=== PATIENT | female | born 1990 | race Caucasian/White ===

== ENCOUNTER 2016-07-07 22:29 | Emergency (ER) | payer BC ==
[~2016-07-07] VITALS: Wt 48.0 kg
[2016-07-07] MEDS ORDERED: DIPHENHYDRAMINE 50 MG INJ IV ONE (23:30)
[2016-07-07] MEDS ORDERED: METHYLPREDNISOLONE 125 MG INJ IV ONE (23:30)
[2016-07-07] MEDS ORDERED: FAMOTIDINE 20 MG INJ IV ONE (23:30)
[2016-07-08] MEDS ORDERED: PRED20TA PO (00:25)
--- NOTE | 2016-07-08 00:25 | ERD ---
ER Documentation Chief Complaint Date/Time DATE: 07/07/16 Chief Complaint Allergic reaction, Hives HPI The patient is a 26-year-old female who presents to the Emergency Department with complaint of hives and allergic reaction. She reports that at 7:30 pm tonight, she ate a new soup. Approximately 15-20 minutes later, she developed minimal swelling to her upper lip (which has since resolved) and urticaria. The urticaria were initially localized to her bilateral arms, but are now present to both arms, legs, her face, anterior chest wall and abdomen. She describes itching, that has not resolved after taking a Benadryl. The patient notes that she has had one previous allergic reaction in the past (01/2015), for which she was subsequently evaluated by an cessation systems outreach specialist, with no allergens identified. The patient did look at the soup box ingredients after development of her allergic reaction, and states that the only new ingredient that she has not been exposed to previously is buckwheat. She denies any current lip or tongue swelling, throat tightness, shortness of breath, difficulty breathing, difficulty tolerating her oral secretions, change in her voice, neck pain, abdominal pain, vomiting. Denies wheezing. Denies chest pain /tightness or palpitations. Denies any other new exposures, including no new soaps, detergens, shampoos, lotions, (other) foods, drinks, medications, plants , animals. The patient does note a drug allergy to sulfa, but has not had any sulfa-based medications. ROS All systems reviewed and are negative except as per history of present illness. Medications Home Meds Active Scripts Diphenhydramine Hcl* (Benadryl*) 25 Mg Cap, 25 MG PO Q6, #30 CAP Prov:KIESHA TOPETE PA-C 07/08/16 Famotidine* (Pepcid*) 20 Mg Tablet, 20 MG PO BID for 5 Days, TAB Prov:KIESHA TOPETE PA-C 07/08/16 Prednisone* (Prednisone*) 20 Mg Tab, 60 MG PO DAILY for 5 Days, TAB Prov:KIESHA TOPETE PA-C 07/08/16 Allergies Allergies: Coded Allergies: Sulfa (Sulfonamide Antibiotics) (Verified Allergy, 07/08/16) PMhx/Soc History of Surgery: No Anesthesia Reaction: No Hx Neurological Disorder: No Hx Respiratory Disorders: No Hx Cardiac Disorders: No Hx Psychiatric Problems: No Hx Miscellaneous Medical Probl: Yes (allergic reaction (unknown in past)) Hx Alcohol Use: No Hx Substance Use: No Hx Tobacco Use: No Physical Exam Vitals Vital Signs Date Time Temp Pulse Resp B/P Pulse Ox O2 Delivery O2 Flow Rate FiO2 07/08/16 01:11 98.5 83 16 125/65 100 07/07/16 22:38 98.0 99 18 127/89 98 Physical Exam GENERAL: Well-developed, well-nourished, in no acute distress. Nontoxic. No acute respiratory distress. HEENT: Head is normocephalic, atraumatic. No scleral pallor or icterus. Pupils equal, round and reactive to light. Extraocular movements intact. No periorbital edema. Conjunctiva pink. Nares are patent bilaterally. Moist mucous membranes. No pharyngeal erythema or exudates. Uvula is midline. Clear oropharynx. No intraoral swelling. No lip or tongue swelling. No trismus. No stridor. No excessive drooling. Phonation is normal. No submandibular swelling. NECK: Supple. No masses, no tenderness, no lymphadenopathy. Trachea midline. No nuchal rigidity. Full range of motion. RESPIRATORY: Lungs are clear to auscultation bilaterally. No rales, rhonchi or wheezing. Equal breath sounds. Normal expiratory effort. No accessory muscle use. CARDIOVASCULAR: Regular rate and rhythm. S1 and S2 normal. No murmurs, rubs, or gallops. GASTROINTESTINAL: Abdomen is soft, nontender, and nondistended. Positive bowel sounds. EXTREMITIES: No clubbing, cyanosis, or edema. Normal skin perfusion. Full range of motion of both the upper and lower extremities bilaterally. Muscle tone is normal. No focal swelling or erythema. Distal pulses are palpable, 2+ bilaterally. Capillary refill is less than 2 seconds. NEUROLOGIC: The patient is alert, awake, and oriented x 3. No focal neurologic deficits. Cranial nerves are grossly intact. Gait is observed and normal. There is no ataxia. Speech is normal. INTEGUMENT: Raised regions of urticaria, with some reasons of coalescence on her trunk, neck, face and extremities. No excoriations were noted. No target lesions, skip lesions, crepitus, skin sloughing, urticaria, oozing, central clearing were noted. No purpura or petechiae. No bullae, vesicles, ulcerations. No pain away from site of rash. No mucosal involvement. PSYCHIATRIC: Appropriate; Cooperative. Results 24 hrs Current Medications Medications (Trade) Dose Ordered Sig/Jayy Route PRN Reason Start Time Stop Time Status Last Admin Dose Admin Diphenhydramine HCl (Benadryl) 25 mg ONCE ONCE IV 07/07/16 23:30 07/07/16 23:31 DC 07/07/16 23:53 Famotidine (Pepcid Iv) 20 mg ONCE ONCE IV 07/07/16 23:30 07/07/16 23:31 DC 07/07/16 23:53 Methylprednisolone Sodium Succinate (Solu-Medrol) 125 mg ONCE ONCE IV 07/07/16 23:30 07/07/16 23:31 DC 07/07/16 23:53 Procedures/MDM This is a 26-year-old female patient presenting to the emergency department with complaint of a pruritic skin rash/urticaria and allergic reaction. The patient had notable raised, regions of urticaria, with some reasons of coalescence on her trunk, neck, face, abdomen and extremities on physical examination. However, the patient's oropharynx and airway were patent, and exhibited no breathing difficulties, wheezing, tongue swelling or lip swelling. No evidence of angioedema, airway compromise, inability to handle oral secretions or stridor. Patient's phonation was normal. No wheezing auscultated on physical examination. Circulation was appropriate, with no systemic signs of anaphylaxis, no hypotension. No associated purpura or petechiae. The differential diagnosis includes, but is not limited to, allergic reaction, insect bite, fungal infection, cellulitis, MRSA, impetigo, shingles, herpes simplex virus, burn, abscess, dermatitis, viral syndrome, candidiasis, medication reaction, Greene Rafael syndrome, epidermolysis bullosa, toxic epidermal necrolysis, meningococcemia, toxic shock syndrome, hand foot and mouth disease, mononucleosis, heat rash. No evidence of crepitus, skip lesions or pain away from site of rash, concerning for necrotizing fasciitis or myositis. No mucosal involvement or appearance concerning for Paul Rafael's syndrome or TENS. No airway compromise or concern for anaphylaxis. No indication of angioedema. After rest and administration of Solu-Medrol, Benadryl and Pepcid, the patient has no new complaints, and the patient remains stable with appropriate vital signs and no signs of respiratory distress. Her urticaria have largely resolved. Upon my review and interpretation of the patient's presentation and overall ER course, I believe the patient's symptoms are most consistent with urticaria and likely allergic reaction. At this time, the patient is in stable condition and therefore can be discharged home with prescriptions for Prednisone, Pepcid and Benadryl, and strict return precautions for signs of deteriorating or worsening condition. She is advised to follow up with her primary care provider and cessation systems outreach specialist within 2-3 days for re-evaluation and further management, or return to the ER sooner for worsening symptoms. I shared my medical decision making and plan with the patient at length and in great detail, and she verbally understands and agrees with the plan for further observation and care as an outpatient. At the time of discharge all questions were answered. Departure Diagnosis: Primary Impression: Allergic reaction Encounter type: initial encounter Qualified Code: T78.40XA - Allergic reaction, initial encounter Additional Impression: Urticaria Condition: Stable Patient Instructions: Allergic Reaction, Other (General), First Aid: Allergic Reactions, Hives Additional Instructions: Follow-up with her primary medical provider and cessation systems outreach specialist for further evaluation and management within 2-3 days. Return to the ER sooner for any new or worsening symptoms. KIESHA TOPETE PA-C Jul 08, 2016 00:25
[2016-07-08] MEDS ORDERED: FAMO-18 PO (00:26)
[2016-07-08] MEDS ORDERED: BEN25 PO (00:26)
[2016-07-08 01:11] VITALS: BP 125/65; PULSE 83; RESP 16; TEMP 98.5
== END 2016-07-08 01:17 | disposition home or self-care (01) ==
LOC: FTE 22:29
DX: L50.9 Urticaria, unspecified (principal); T78.1XXA Other adverse food reactions, not elsewhere classified, initial encounter
CPT/HCPCS: 96374; 96375; 99284; J1200; J2930